=== PATIENT | male | born 1950 | race Caucasian/White ===

== ENCOUNTER 2021-09-04 15:51 | Inpatient (IN) ==
[2021-09-04] MEDS ORDERED: SODIUM CHLORIDE 0.9% 1,000 ML IV STA (16:55)
[2021-09-04 17:12] LABS: Hematocrit 39.5 VOL% (42.0-52.0); Hemoglobin 12.1 GM/DL (14.0-18.0); Immature Granulocytes % 0.7 %; Immature Granulocytes Absolute 0.04 #; Lymphocytes # 0.2 10*3/uL (1.4-4.0); Lymphocytes % 3.3 % (21.2-54.2); Mean Corpuscular HGB Conc 30.6 GM/DL (32-36); Mean Corpuscular Volume 86.8 FL (87-102); Mean Platelet Volume 9.8 FL (9.6-12.0); Monocytes % 3.8 % (1.7-12.7); Neutrophils % 92.2 % (38.7-73.9); Platelet Count 238 T/CUMM (130-400); Red Blood Count 4.55 MC/CUMM (3.8-5.5); Red Cell Distribution Width 14.6 % (9.3-17.3)
[2021-09-04 17:20] LABS: ABG Base Excess 2.8 MMOL/L (-2.5-2.5); ABG HCO3 26.9 MMOL/L (20-26); ABG Oxygen Saturation 98.7 % (95-100); ABG PCO2 34.9 MM HG (35-48); ABG TCO2 22.9 MMOL/L (23-27); Pt O2 Delivery Device Ventilator
[2021-09-04 17:45] LABS: Albumin 2.3 G/DL (3.4-5.0); Bilirubin,Total 0.5 MG/DL (0.20-1.00); Calcium 9.6 MG/DL (8.5-10.1); Osmolality,Calculated 281.5 MOS/KG (273-304); Total Protein 7.1 G/DL (6.4-8.2)
[2021-09-04] MEDS ORDERED: LEVOFLOXACIN INJ 500 MG/100 ML PREMIX IV ONE (18:14)
[2021-09-04 18:31] LABS: INR 1.6; PT Patient Result 17.2 SECS (10.5-12.0)
[2021-09-04 18:50] LABS: Lymphocytes 3 % (20-55); Platelet Estimate Increased; Segmented Neutrophils 90 % (50-85); Total Cells Counted 100
[2021-09-04 18:51] LABS: Ovalocytes 1+
[2021-09-04] MEDS ORDERED: ONDANSETRON 4 MG/2 ML VIAL IV PRN (19:21)
[2021-09-04] MEDS ORDERED: DEXTROSE 50% 25 GM/50 ML VIAL IV PRN (19:21)
[2021-09-04] MEDS ORDERED: GLUCAGON 1 MG VIAL IM PRN (19:21)
[2021-09-04 21:56] LABS: INR 1.4; PT Patient Result 15.1 SECS (10.5-12.0)
[2021-09-04 22:18] LABS: Total Protein 6.2 G/DL (6.4-8.2)
[2021-09-05] MEDS: ALBUTEROL/IPRATROPIUM 3 ML NEB RESP TX SCH ×4 (01:06→20:17)
[2021-09-05 04:28] LABS: Eosinophils % 0.2 % (0.00-10.9); Hematocrit 34.7 VOL% (42.0-52.0); Hemoglobin 10.7 GM/DL (14.0-18.0); Immature Granulocytes % 0.3 %; Immature Granulocytes Absolute 0.02 #; Lymphocytes # 0.2 10*3/uL (1.4-4.0); Lymphocytes % 3.9 % (21.2-54.2); Mean Corpuscular HGB Conc 30.8 GM/DL (32-36); Mean Corpuscular Volume 87.8 FL (87-102); Mean Platelet Volume 9.7 FL (9.6-12.0); Monocytes % 6.3 % (1.7-12.7); Neutrophils % 89.3 % (38.7-73.9); Platelet Count 186 T/CUMM (130-400); Red Blood Count 3.95 MC/CUMM (3.8-5.5); Red Cell Distribution Width 14.4 % (9.3-17.3); White Blood Count 6.1 T/CUMM (4-12)
[2021-09-05 04:56] LABS: Hypochromasia 1+; Lymphocytes 5 % (20-55); Microcytosis 1+; Platelet Estimate Adequate; Segmented Neutrophils 90 % (50-85); Total Cells Counted 100
[2021-09-05 04:57] LABS: Ovalocytes Slight
[2021-09-05 04:58] LABS: Albumin 1.8 G/DL (3.4-5.0); Bilirubin,Total 0.7 MG/DL (0.20-1.00); Osmolality,Calculated 281.3 MOS/KG (273-304); Potassium 3.7 MMOL/L (3.5-5.1); Total Protein 5.6 G/DL (6.4-8.2)
[2021-09-05] MEDS ORDERED: PANTOPRAZOLE 40 MG TABLET PO SCH (09:00)
[2021-09-05] MEDS ORDERED: MIDAZOLAM 2 MG/2 ML VIAL IV ONE (09:12)
[2021-09-05] MEDS ORDERED: KETOROLAC 15 MG/1 ML VIAL ONE (10:26)
[2021-09-05] MEDS ORDERED: KETOROLAC 15 MG/1 ML VIAL IV ONE (10:33)
[2021-09-05] MEDS ORDERED: ACETAMINOPHEN 325 MG TABLET PO PRN (10:41)
[2021-09-05] MEDS ORDERED: CYANOCOBALAMIN 1000 MCG/1 ML VIAL IM ONE (10:43)
[2021-09-05] MEDS ORDERED: methylPREDNISolone SOD SUC 125 MG/2 ML VIAL IV SCH (11:00)
[2021-09-05] MEDS: PIPERACILLIN/TAZOBACTAM 3,375 MG in SODIUM CHLORIDE 0.9% 100 ML IV SCH ×2 (11:32→22:17)
[2021-09-05] MEDS: MULTIVITAMIN (CENTRUM) TABLET PO SCH (11:34)
[2021-09-05] MEDS: LACTATED RINGERS 1,000 ML IV SCH ×2 (11:34→19:15)
[2021-09-05] MEDS: RACEPINEPHRINE 0.5 ML NEB RESP TX SCH ×3 (11:55→20:17)
[2021-09-05 15:43] LABS: Total Protein,Body Fluid 3.2 G/DL
[2021-09-05 17:39] LABS: Eosinophils,Pleural Fluid 5 %; Lymphocytes,Pleural Fluid 64 %; Monocytes,Pleural Fluid 10 %; Neutrophils,Pleural Fluid 21 %
[2021-09-05 17:47] LABS: RBC,Pleural Fluid 9332 T/CUMM
[2021-09-05] MEDS: PANTOPRAZOLE 40 MG TABLET PO SCH (20:42)
[2021-09-05] MEDS: TAMSULOSIN 0.4 MG CAPSULE PO SCH (20:42)
[2021-09-05] MEDS: methylPREDNISolone SOD SUC 125 MG/2 ML VIAL IV SCH (20:42)
[2021-09-05] MEDS: LEVOFLOXACIN INJ 750 MG/150 ML PREMIX IV SCH (20:42)
[2021-09-05] MEDS: SIMVASTATIN 10 MG TABLET PO SCH (20:42)
[2021-09-05] MEDS: CALCIUM (CARBONATE)/VITAMIN D 600 MG-400 UNIT TABLET PO SCH (20:42)
[2021-09-05] MEDS ORDERED: MELATONIN 3 MG TABLET PO PRN (20:59)
[2021-09-06] MEDS: ALBUTEROL/IPRATROPIUM 3 ML NEB RESP TX SCH ×4 (00:20→19:37)
[2021-09-06] MEDS: methylPREDNISolone SOD SUC 125 MG/2 ML VIAL IV SCH ×3 (02:30→20:47)
[2021-09-06] MEDS: PIPERACILLIN/TAZOBACTAM 3,375 MG in SODIUM CHLORIDE 0.9% 100 ML IV SCH ×2 (05:05→15:29)
[2021-09-06] MEDS: LACTATED RINGERS 1,000 ML IV SCH (05:05)
[2021-09-06 05:29] LABS: Hematocrit 36.5 VOL% (42.0-52.0); Hemoglobin 11.2 GM/DL (14.0-18.0); Immature Granulocytes % 0.5 %; Immature Granulocytes Absolute 0.02 #; Lymphocytes # 0.1 10*3/uL (1.4-4.0); Lymphocytes % 1.8 % (21.2-54.2); Mean Corpuscular HGB Conc 30.7 GM/DL (32-36); Mean Corpuscular Volume 86.9 FL (87-102); Mean Platelet Volume 9.8 FL (9.6-12.0); Monocytes % 1.1 % (1.7-12.7); Neutrophils % 96.6 % (38.7-73.9); Platelet Count 187 T/CUMM (130-400); Red Cell Distribution Width 14.5 % (9.3-17.3); White Blood Count 4.4 T/CUMM (4-12)
[2021-09-06 05:46] LABS: Calcium 9.3 MG/DL (8.5-10.1); Osmolality,Calculated 283.3 MOS/KG (273-304); Potassium 4.1 MMOL/L (3.5-5.1)
[2021-09-06 06:41] LABS: Hypochromasia 1+; Lymphocytes 5 % (20-55); Platelet Estimate Adequate; Polychromasia Slight; Segmented Neutrophils 94 % (50-85); Total Cells Counted 100
[2021-09-06] MEDS: RACEPINEPHRINE 0.5 ML NEB RESP TX SCH ×4 (07:05→19:37)
[2021-09-06] MEDS: MULTIVITAMIN (CENTRUM) TABLET PO SCH (09:15)
[2021-09-06] MEDS: FUROSEMIDE 40 MG/4 ML VIAL IV SCH ×2 (09:15→15:29)
[2021-09-06] MEDS: ZINC GLUCONATE 50 MG TABLET PO SCH (09:15)
[2021-09-06] MEDS: ASCORBIC ACID 500 MG TABLET PO SCH (09:16)
[2021-09-06] MEDS: PANTOPRAZOLE 40 MG TABLET PO SCH ×2 (09:16→20:48)
[2021-09-06] MEDS: FOLIC ACID 1 MG TABLET PO SCH (09:16)
[2021-09-06] MEDS: CALCIUM (CARBONATE)/VITAMIN D 600 MG-400 UNIT TABLET PO SCH ×2 (09:16→20:48)
[2021-09-06] MEDS: APIXABAN 5 MG TABLET PO SCH (20:48)
[2021-09-06] MEDS: SIMVASTATIN 10 MG TABLET PO SCH (20:48)
[2021-09-06] MEDS: LEVOFLOXACIN INJ 750 MG/150 ML PREMIX IV SCH (20:48)
[2021-09-06] MEDS: TAMSULOSIN 0.4 MG CAPSULE PO SCH (20:48)
[2021-09-07] MEDS: PIPERACILLIN/TAZOBACTAM 3,375 MG in SODIUM CHLORIDE 0.9% 100 ML IV SCH ×3 (00:28→16:21)
[2021-09-07] MEDS: ALBUTEROL/IPRATROPIUM 3 ML NEB RESP TX SCH ×5 (01:11→19:30)
[2021-09-07] MEDS: methylPREDNISolone SOD SUC 125 MG/2 ML VIAL IV SCH ×3 (05:33→20:14)
[2021-09-07] MEDS: RACEPINEPHRINE 0.5 ML NEB RESP TX SCH ×4 (06:56→19:30)
[2021-09-07 07:04] LABS: Hematocrit 39.3 VOL% (42.0-52.0); Hemoglobin 12.4 GM/DL (14.0-18.0); Immature Granulocytes % 0.5 %; Immature Granulocytes Absolute 0.04 #; Lymphocytes # 0.2 10*3/uL (1.4-4.0); Lymphocytes % 1.8 % (21.2-54.2); Mean Corpuscular HGB Conc 31.6 GM/DL (32-36); Mean Corpuscular Volume 85.6 FL (87-102); Monocytes % 2.1 % (1.7-12.7); Neutrophils % 95.6 % (38.7-73.9); Platelet Count 245 T/CUMM (130-400); Red Blood Count 4.59 MC/CUMM (3.8-5.5); Red Cell Distribution Width 14.6 % (9.3-17.3); White Blood Count 8.2 T/CUMM (4-12)
[2021-09-07 07:31] LABS: Calcium 9.5 MG/DL (8.5-10.1); Osmolality,Calculated 288.1 MOS/KG (273-304); Potassium 3.5 MMOL/L (3.5-5.1)
[2021-09-07 08:54] LABS: Segmented Neutrophils 99 % (50-85); Total Cells Counted 100
[2021-09-07 08:56] LABS: Hypochromasia 1+; Ovalocytes Few; Platelet Estimate Normal
[2021-09-07] MEDS: APIXABAN 5 MG TABLET PO SCH ×2 (09:38→20:13)
[2021-09-07] MEDS: MULTIVITAMIN (CENTRUM) TABLET PO SCH (09:38)
[2021-09-07] MEDS: FOLIC ACID 1 MG TABLET PO SCH (09:38)
[2021-09-07] MEDS: ASCORBIC ACID 500 MG TABLET PO SCH (09:39)
[2021-09-07] MEDS: CALCIUM (CARBONATE)/VITAMIN D 600 MG-400 UNIT TABLET PO SCH ×2 (09:39→20:13)
[2021-09-07] MEDS: ZINC GLUCONATE 50 MG TABLET PO SCH (09:39)
[2021-09-07] MEDS: PANTOPRAZOLE 40 MG TABLET PO SCH ×2 (09:39→20:13)
[2021-09-07] MEDS: FUROSEMIDE 40 MG/4 ML VIAL IV SCH ×2 (09:40→15:55)
[2021-09-07] MEDS: TAMSULOSIN 0.4 MG CAPSULE PO SCH (20:12)
[2021-09-07] MEDS: SIMVASTATIN 10 MG TABLET PO SCH (20:13)
[2021-09-07] MEDS: LEVOFLOXACIN INJ 750 MG/150 ML PREMIX IV SCH (20:13)
[2021-09-08] MEDS: ALBUTEROL/IPRATROPIUM 3 ML NEB RESP TX SCH ×4 (00:45→19:05)
[2021-09-08] MEDS: PIPERACILLIN/TAZOBACTAM 3,375 MG in SODIUM CHLORIDE 0.9% 100 ML IV SCH ×3 (01:22→16:12)
[2021-09-08] MEDS: methylPREDNISolone SOD SUC 125 MG/2 ML VIAL IV SCH ×3 (05:26→21:02)
[2021-09-08 05:32] LABS: Hematocrit 40.6 VOL% (42.0-52.0); Hemoglobin 12.6 GM/DL (14.0-18.0); Immature Granulocytes % 0.5 %; Immature Granulocytes Absolute 0.04 #; Lymphocytes # 0.1 10*3/uL (1.4-4.0); Lymphocytes % 1.1 % (21.2-54.2); Mean Corpuscular Volume 86.4 FL (87-102); Mean Platelet Volume 9.9 FL (9.6-12.0); Monocytes % 2.5 % (1.7-12.7); Neutrophils % 95.9 % (38.7-73.9); Platelet Count 257 T/CUMM (130-400); Red Cell Distribution Width 14.7 % (9.3-17.3)
[2021-09-08 05:50] LABS: Calcium 9.5 MG/DL (8.5-10.1); Potassium 3.3 MMOL/L (3.5-5.1)
[2021-09-08 06:05] LABS: Hypochromasia Slight; Lymphocytes 2 % (20-55); Microcytosis Slight; Platelet Estimate Adequate; Segmented Neutrophils 97 % (50-85); Total Cells Counted 100
[2021-09-08] MEDS: RACEPINEPHRINE 0.5 ML NEB RESP TX SCH (07:27)
[2021-09-08] MEDS ORDERED: LACTATED RINGERS 1,000 ML IV ONE (09:01)
[2021-09-08] MEDS: ZINC GLUCONATE 50 MG TABLET PO SCH (09:11)
[2021-09-08] MEDS ORDERED: METOPROLOL TARTRATE 50 MG TABLET PO ONE (09:13)
[2021-09-08] MEDS: FUROSEMIDE 40 MG/4 ML VIAL IV SCH (09:13)
[2021-09-08] MEDS: ASCORBIC ACID 500 MG TABLET PO SCH (09:15)
[2021-09-08] MEDS: PANTOPRAZOLE 40 MG TABLET PO SCH ×2 (09:16→20:38)
[2021-09-08] MEDS: FOLIC ACID 1 MG TABLET PO SCH (09:16)
[2021-09-08] MEDS: APIXABAN 5 MG TABLET PO SCH (09:17)
[2021-09-08] MEDS: MULTIVITAMIN (CENTRUM) TABLET PO SCH (09:17)
[2021-09-08] MEDS: CALCIUM (CARBONATE)/VITAMIN D 600 MG-400 UNIT TABLET PO SCH ×2 (09:17→20:38)
[2021-09-08] MEDS ORDERED: AMIODARONE INJ 150 MG in DEXTROSE 5% 100 ML IV ONE (09:19)
[2021-09-08] MEDS ORDERED: AMIODARONE INJ 450 MG in DEXTROSE 5% 241 ML IV SCH (09:30)
[2021-09-08 10:16] LABS: M. Tuberculosis PCR Result Negative (Negative)
[2021-09-08] MEDS: POTASSIUM CHLORIDE 20 MEQ TABLET PO SCH ×2 (11:30→20:38)
[2021-09-08] MEDS: AMIODARONE INJ 450 MG in DEXTROSE 5% 241 ML IV SCH (18:50)
[2021-09-08] MEDS: LEVOFLOXACIN INJ 750 MG/150 ML PREMIX IV SCH (20:35)
[2021-09-08] MEDS: SIMVASTATIN 10 MG TABLET PO SCH (20:38)
[2021-09-08] MEDS: TAMSULOSIN 0.4 MG CAPSULE PO SCH (20:38)
[2021-09-09] MEDS: PIPERACILLIN/TAZOBACTAM 3,375 MG in SODIUM CHLORIDE 0.9% 100 ML IV SCH ×3 (00:03→15:26)
[2021-09-09] MEDS: ALBUTEROL/IPRATROPIUM 3 ML NEB RESP TX SCH ×3 (00:28→20:22)
[2021-09-09] MEDS: methylPREDNISolone SOD SUC 125 MG/2 ML VIAL IV SCH ×3 (04:15→21:50)
[2021-09-09 06:40] LABS: Hematocrit 39.1 VOL% (42.0-52.0); Hemoglobin 11.8 GM/DL (14.0-18.0); Immature Granulocytes % 0.6 %; Immature Granulocytes Absolute 0.04 #; Lymphocytes # 0.1 10*3/uL (1.4-4.0); Lymphocytes % 1.3 % (21.2-54.2); Mean Corpuscular HGB Conc 30.2 GM/DL (32-36); Mean Corpuscular Volume 87.5 FL (87-102); Monocytes % 2.4 % (1.7-12.7); Neutrophils % 95.7 % (38.7-73.9); Platelet Count 208 T/CUMM (130-400); Red Blood Count 4.47 MC/CUMM (3.8-5.5); White Blood Count 6.8 T/CUMM (4-12)
[2021-09-09 07:03] LABS: Albumin 1.8 G/DL (3.4-5.0); Bilirubin,Total 0.8 MG/DL (0.20-1.00); Calcium 9.4 MG/DL (8.5-10.1); Potassium 5.4 MMOL/L (3.5-5.1); Total Protein 5.6 G/DL (6.4-8.2)
[2021-09-09 07:14] LABS: Hypochromasia 1+; Lymphocytes 3 % (20-55); Microcytosis 1+; Platelet Estimate Adequate; Segmented Neutrophils 94 % (50-85); Total Cells Counted 100
[2021-09-09] MEDS: MULTIVITAMIN (CENTRUM) TABLET PO SCH (08:25)
[2021-09-09] MEDS: ASCORBIC ACID 500 MG TABLET PO SCH (08:25)
[2021-09-09] MEDS: FOLIC ACID 1 MG TABLET PO SCH (08:26)
[2021-09-09] MEDS: CALCIUM (CARBONATE)/VITAMIN D 600 MG-400 UNIT TABLET PO SCH ×2 (08:26→21:50)
[2021-09-09] MEDS: PANTOPRAZOLE 40 MG TABLET PO SCH ×2 (08:26→21:50)
[2021-09-09] MEDS: ZINC GLUCONATE 50 MG TABLET PO SCH (08:26)
[2021-09-09] MEDS: FUROSEMIDE 40 MG/4 ML VIAL IV SCH (08:28)
[2021-09-09 09:22] LABS: Bilirubin,Urine Negative (Negative); Blood, Urine Negative (Negative); Glucose,Urine (UA) Negative (Negative); Ketones,Urine Negative (Negative); Mucus,Urine Few /LPF (Occasional); Nitrite,Urine Negative (Negative); Protein,Urine Negative; RBC,Urine 3 /HPF (0-4); Squamous Epithelial Cell,Urine Occasional /HPF (0-10); Urine Appearance CLEAR (Clear); Urine Color Yellow (Yellow); Urine Urobilinogen < 2.0 EU/DL (0.2-1.0)
[2021-09-09] MEDS: AMIODARONE INJ 450 MG in DEXTROSE 5% 241 ML IV SCH (11:01)
[2021-09-09] MEDS: AMIODARONE 200 MG TABLET PO SCH ×2 (12:01→22:06)
[2021-09-09] MEDS: MENTHOL/ZINC OXIDE OINT 71 GM JAR TOP SCH (15:18)
[2021-09-09] MEDS: TAMSULOSIN 0.4 MG CAPSULE PO SCH (21:51)
[2021-09-09] MEDS: LEVOFLOXACIN INJ 750 MG/150 ML PREMIX IV SCH (21:51)
[2021-09-09] MEDS: APIXABAN 5 MG TABLET PO SCH (22:06)
[2021-09-09] MEDS: SIMVASTATIN 10 MG TABLET PO SCH (22:08)
[2021-09-10] MEDS: ALBUTEROL/IPRATROPIUM 3 ML NEB RESP TX SCH ×5 (00:48→19:20)
[2021-09-10] MEDS: PIPERACILLIN/TAZOBACTAM 3,375 MG in SODIUM CHLORIDE 0.9% 100 ML IV SCH (05:15)
[2021-09-10] MEDS: methylPREDNISolone SOD SUC 125 MG/2 ML VIAL IV SCH ×3 (05:15→21:05)
[2021-09-10 05:50] LABS: Hematocrit 41.3 VOL% (42.0-52.0); Hemoglobin 12.8 GM/DL (14.0-18.0); Immature Granulocytes % 0.6 %; Immature Granulocytes Absolute 0.05 #; Lymphocytes # 0.1 10*3/uL (1.4-4.0); Lymphocytes % 1.1 % (21.2-54.2); Mean Corpuscular Volume 86.9 FL (87-102); Mean Platelet Volume 10.1 FL (9.6-12.0); Monocytes % 2.7 % (1.7-12.7); Neutrophils % 95.6 % (38.7-73.9); Platelet Count 205 T/CUMM (130-400); Red Blood Count 4.75 MC/CUMM (3.8-5.5); Red Cell Distribution Width 14.6 % (9.3-17.3); White Blood Count 8.6 T/CUMM (4-12)
[2021-09-10 06:04] LABS: Albumin 2.1 G/DL (3.4-5.0); Bilirubin,Total 1.4 MG/DL (0.20-1.00); Calcium 9.5 MG/DL (8.5-10.1); Osmolality,Calculated 295.8 MOS/KG (273-304); Potassium 3.7 MMOL/L (3.5-5.1); Total Protein 5.4 G/DL (6.4-8.2)
[2021-09-10 06:22] LABS: Hypochromasia Slight; Microcytosis Slight; Ovalocytes Slight; Platelet Estimate Adequate; Segmented Neutrophils 99 % (50-85); Total Cells Counted 100
[2021-09-10] MEDS: FUROSEMIDE 40 MG/4 ML VIAL IV SCH (09:05)
[2021-09-10] MEDS: MENTHOL/ZINC OXIDE OINT 71 GM JAR TOP SCH (09:05)
[2021-09-10] MEDS: MULTIVITAMIN (CENTRUM) TABLET PO SCH (09:12)
[2021-09-10] MEDS: ZINC GLUCONATE 50 MG TABLET PO SCH (09:12)
[2021-09-10] MEDS: PANTOPRAZOLE 40 MG TABLET PO SCH ×2 (09:12→23:37)
[2021-09-10] MEDS: ASCORBIC ACID 500 MG TABLET PO SCH (09:12)
[2021-09-10] MEDS: FOLIC ACID 1 MG TABLET PO SCH (09:12)
[2021-09-10] MEDS: AMIODARONE 200 MG TABLET PO SCH ×2 (09:12→21:05)
[2021-09-10] MEDS: APIXABAN 5 MG TABLET PO SCH ×2 (09:13→21:06)
[2021-09-10] MEDS: CALCIUM (CARBONATE)/VITAMIN D 600 MG-400 UNIT TABLET PO SCH ×2 (09:22→21:06)
[2021-09-10] MEDS ORDERED: FLUCONAZOLE INJ 100 MG/50 ML PREMIX IV SCH (11:00)
[2021-09-10] MEDS: Cyanocobalamin (Vitamin B-12) [Vitamin B-12] 5,000 mcg Tablet, S SL SCH (13:29)
[2021-09-10] MEDS: CYANOCOBALAMIN 1000 MCG/1 ML VIAL IM SCH (14:03)
[2021-09-10 14:36] LABS: M. Tuberculosis PCR Result Negative (Negative); M. Tuberculosis PCR Source PLEURAL FLUID
[2021-09-10] MEDS: SIMVASTATIN 10 MG TABLET PO SCH (21:06)
[2021-09-10] MEDS: TAMSULOSIN 0.4 MG CAPSULE PO SCH (21:06)
[2021-09-11] MEDS: ALBUTEROL/IPRATROPIUM 3 ML NEB RESP TX SCH ×4 (01:40→19:19)
[2021-09-11 06:04] LABS: Calcium 9.8 MG/DL (8.5-10.1); Osmolality,Calculated 299.7 MOS/KG (273-304); Potassium 3.4 MMOL/L (3.5-5.1)
[2021-09-11 06:13] LABS: Basophils % 0.1 % (0.0-0.8); Hematocrit 44.3 VOL% (42.0-52.0); Hemoglobin 13.4 GM/DL (14.0-18.0); Immature Granulocytes % 0.4 %; Immature Granulocytes Absolute 0.03 #; Lymphocytes # 0.1 10*3/uL (1.4-4.0); Mean Corpuscular HGB Conc 30.2 GM/DL (32-36); Mean Corpuscular Volume 86.9 FL (87-102); Mean Platelet Volume 10.2 FL (9.6-12.0); Monocytes % 1.9 % (1.7-12.7); Neutrophils % 96.6 % (38.7-73.9); Platelet Count 194 T/CUMM (130-400); Red Cell Distribution Width 14.8 % (9.3-17.3); White Blood Count 7.2 T/CUMM (4-12)
[2021-09-11] MEDS: methylPREDNISolone SOD SUC 125 MG/2 ML VIAL IV SCH ×3 (06:17→21:03)
[2021-09-11 06:21] LABS: Platelet Estimate Adequate; Segmented Neutrophils 99 % (50-85); Total Cells Counted 100
[2021-09-11] MEDS ORDERED: POTASSIUM CHLORIDE 20 MEQ TABLET PO ONE (08:07)
[2021-09-11] MEDS: ZINC GLUCONATE 50 MG TABLET PO SCH (08:37)
[2021-09-11] MEDS: MULTIVITAMIN (CENTRUM) TABLET PO SCH (08:38)
[2021-09-11] MEDS: FOLIC ACID 1 MG TABLET PO SCH (08:39)
[2021-09-11] MEDS: AMIODARONE 200 MG TABLET PO SCH (08:39)
[2021-09-11] MEDS: PANTOPRAZOLE 40 MG TABLET PO SCH ×2 (08:39→21:03)
[2021-09-11] MEDS: FUROSEMIDE 40 MG/4 ML VIAL IV SCH (08:39)
[2021-09-11] MEDS: ASCORBIC ACID 500 MG TABLET PO SCH ×2 (08:39→21:02)
[2021-09-11] MEDS: CALCIUM (CARBONATE)/VITAMIN D 600 MG-400 UNIT TABLET PO SCH ×2 (08:39→21:02)
[2021-09-11] MEDS: MENTHOL/ZINC OXIDE OINT 71 GM JAR TOP SCH (08:54)
[2021-09-11] MEDS: APIXABAN 5 MG TABLET PO SCH ×2 (15:06→21:02)
[2021-09-11] MEDS: FLUCONAZOLE INJ 400 MG/200 ML PREMIX IV SCH (16:50)
[2021-09-11] MEDS: TAMSULOSIN 0.4 MG CAPSULE PO SCH (21:02)
[2021-09-11] MEDS: SIMVASTATIN 10 MG TABLET PO SCH (21:02)
[2021-09-12] MEDS: ALBUTEROL/IPRATROPIUM 3 ML NEB RESP TX SCH ×4 (01:14→19:50)
[2021-09-12] MEDS: methylPREDNISolone SOD SUC 125 MG/2 ML VIAL IV SCH ×3 (04:41→21:17)
[2021-09-12 05:34] LABS: Calcium 9.6 MG/DL (8.5-10.1); Osmolality,Calculated 299.8 MOS/KG (273-304)
[2021-09-12 06:35] LABS: Hematocrit 45.6 VOL% (42.0-52.0); Hemoglobin 13.7 GM/DL (14.0-18.0); Immature Granulocytes % 0.5 %; Immature Granulocytes Absolute 0.04 #; Lymphocytes # 0.1 10*3/uL (1.4-4.0); Lymphocytes % 0.8 % (21.2-54.2); Mean Corpuscular Volume 88.4 FL (87-102); Mean Platelet Volume 9.9 FL (9.6-12.0); Monocytes % 1.4 % (1.7-12.7); Neutrophils % 97.3 % (38.7-73.9); Platelet Count 191 T/CUMM (130-400); Red Blood Count 5.16 MC/CUMM (3.8-5.5); Red Cell Distribution Width 14.9 % (9.3-17.3); White Blood Count 8.5 T/CUMM (4-12)
[2021-09-12 06:53] LABS: Anisocytosis 1+; Band Neutrophils 4 % (0-10); Lymphocytes 1 % (20-55); Platelet Estimate Normal; Segmented Neutrophils 94 % (50-85); Target Cells Few; Total Cells Counted 100
[2021-09-12] MEDS: CALCIUM (CARBONATE)/VITAMIN D 600 MG-400 UNIT TABLET PO SCH ×2 (09:20→21:16)
[2021-09-12] MEDS: PANTOPRAZOLE 40 MG TABLET PO SCH ×2 (09:20→21:17)
[2021-09-12] MEDS: ASCORBIC ACID 500 MG TABLET PO SCH ×2 (09:20→21:16)
[2021-09-12] MEDS: APIXABAN 5 MG TABLET PO SCH ×2 (09:20→21:17)
[2021-09-12] MEDS: METOPROLOL SUCCINATE XL 25 MG TABLET PO SCH (09:21)
[2021-09-12] MEDS: ZINC GLUCONATE 50 MG TABLET PO SCH (09:21)
[2021-09-12] MEDS: MULTIVITAMIN (CENTRUM) TABLET PO SCH (09:21)
[2021-09-12] MEDS: FOLIC ACID 1 MG TABLET PO SCH (09:21)
[2021-09-12] MEDS: FUROSEMIDE 40 MG/4 ML VIAL IV SCH (09:28)
[2021-09-12] MEDS: MENTHOL/ZINC OXIDE OINT 71 GM JAR TOP SCH (09:28)
[2021-09-12] MEDS: DILTIAZEM 30 MG TABLET PO SCH ×2 (17:00→21:16)
[2021-09-12] MEDS: SIMVASTATIN 10 MG TABLET PO SCH (21:16)
[2021-09-12] MEDS: TAMSULOSIN 0.4 MG CAPSULE PO SCH (21:17)
[2021-09-13] MEDS: ALBUTEROL/IPRATROPIUM 3 ML NEB RESP TX SCH ×4 (00:20→19:48)
[2021-09-13] MEDS: methylPREDNISolone SOD SUC 125 MG/2 ML VIAL IV SCH ×3 (05:30→20:52)
[2021-09-13] MEDS: CALCIUM (CARBONATE)/VITAMIN D 600 MG-400 UNIT TABLET PO SCH ×2 (09:47→20:52)
[2021-09-13] MEDS: DILTIAZEM 30 MG TABLET PO SCH ×4 (09:47→20:52)
[2021-09-13] MEDS: FOLIC ACID 1 MG TABLET PO SCH (09:47)
[2021-09-13] MEDS: APIXABAN 5 MG TABLET PO SCH ×2 (09:47→20:52)
[2021-09-13] MEDS: ASCORBIC ACID 500 MG TABLET PO SCH ×2 (09:47→20:52)
[2021-09-13] MEDS: ZINC GLUCONATE 50 MG TABLET PO SCH (09:48)
[2021-09-13] MEDS: PANTOPRAZOLE 40 MG TABLET PO SCH ×2 (09:48→20:52)
[2021-09-13] MEDS: MULTIVITAMIN (CENTRUM) TABLET PO SCH (09:48)
[2021-09-13] MEDS: FUROSEMIDE 40 MG/4 ML VIAL IV SCH (09:49)
[2021-09-13] MEDS: METOPROLOL SUCCINATE XL 25 MG TABLET PO SCH (09:49)
[2021-09-13] MEDS: MENTHOL/ZINC OXIDE OINT 71 GM JAR TOP SCH (09:53)
[2021-09-13] MEDS: FLUCONAZOLE INJ 400 MG/200 ML PREMIX IV SCH (09:54)
[2021-09-13] MEDS: ACETYLCYSTEINE 20% 800 MG/4 ML VIAL RESP TX SCH ×2 (20:03→22:14)
[2021-09-13] MEDS: MEROPENEM 500 MG in SODIUM CHLORIDE 0.9% 100 ML IV SCH (20:48)
[2021-09-13] MEDS: TAMSULOSIN 0.4 MG CAPSULE PO SCH (20:52)
[2021-09-13] MEDS: SIMVASTATIN 10 MG TABLET PO SCH (20:52)
[2021-09-13] MEDS: VANCOMYCIN INJ 1,250 MG in SODIUM CHLORIDE 0.9% 250 ML IV SCH (22:13)
[2021-09-14] MEDS: ALBUTEROL/IPRATROPIUM 3 ML NEB RESP TX SCH ×4 (01:29→20:03)
[2021-09-14] MEDS: ACETYLCYSTEINE 20% 800 MG/4 ML VIAL RESP TX SCH ×3 (01:29→14:09)
[2021-09-14] MEDS: MEROPENEM 500 MG in SODIUM CHLORIDE 0.9% 100 ML IV SCH ×3 (01:43→23:16)
[2021-09-14 05:36] LABS: Hematocrit 43.4 VOL% (42.0-52.0); Hemoglobin 13.2 GM/DL (14.0-18.0); Immature Granulocytes % 0.8 %; Immature Granulocytes Absolute 0.09 #; Lymphocytes % 0.3 % (21.2-54.2); Mean Corpuscular HGB Conc 30.4 GM/DL (32-36); Mean Corpuscular Volume 86.8 FL (87-102); Neutrophils % 96.9 % (38.7-73.9); Platelet Count 154 T/CUMM (130-400); Red Cell Distribution Width 14.9 % (9.3-17.3); White Blood Count 10.9 T/CUMM (4-12)
[2021-09-14 05:54] LABS: Calcium 9.5 MG/DL (8.5-10.1); Osmolality,Calculated 297.8 MOS/KG (273-304); Potassium 3.3 MMOL/L (3.5-5.1)
[2021-09-14 05:56] LABS: Lymphocytes 1 % (20-55); Platelet Estimate Adequate; Segmented Neutrophils 98 % (50-85); Total Cells Counted 100
[2021-09-14] MEDS: methylPREDNISolone SOD SUC 125 MG/2 ML VIAL IV SCH ×3 (06:16→21:00)
[2021-09-14] MEDS ORDERED: DEXTROSE 50% 25 GM/50 ML VIAL IV PRN (08:41)
[2021-09-14] MEDS ORDERED: GLUCAGON 1 MG VIAL IM PRN (08:41)
[2021-09-14] MEDS: VANCOMYCIN INJ 1,250 MG in SODIUM CHLORIDE 0.9% 250 ML IV SCH ×2 (09:06→21:02)
[2021-09-14] MEDS: ASCORBIC ACID 500 MG TABLET PO SCH ×2 (09:57→21:00)
[2021-09-14] MEDS: MULTIVITAMIN (CENTRUM) TABLET PO SCH (09:57)
[2021-09-14] MEDS: PANTOPRAZOLE 40 MG TABLET PO SCH ×2 (09:57→21:00)
[2021-09-14] MEDS: ZINC GLUCONATE 50 MG TABLET PO SCH (09:57)
[2021-09-14] MEDS: APIXABAN 5 MG TABLET PO SCH ×2 (09:58→21:00)
[2021-09-14] MEDS: CALCIUM (CARBONATE)/VITAMIN D 600 MG-400 UNIT TABLET PO SCH ×2 (09:58→21:01)
[2021-09-14] MEDS: METOPROLOL SUCCINATE XL 25 MG TABLET PO SCH (09:58)
[2021-09-14] MEDS: DILTIAZEM 30 MG TABLET PO SCH ×3 (09:58→21:01)
[2021-09-14] MEDS: FOLIC ACID 1 MG TABLET PO SCH (09:58)
[2021-09-14] MEDS: FUROSEMIDE 40 MG/4 ML VIAL IV SCH (09:59)
[2021-09-14] MEDS: MENTHOL/ZINC OXIDE OINT 71 GM JAR TOP SCH (09:59)
[2021-09-14] MEDS: FLUCONAZOLE INJ 400 MG/200 ML PREMIX IV SCH (11:10)
[2021-09-14] MEDS: INSULIN REGULAR 100 UNIT/ML SUBCUT SCH ×3 (12:05→21:49)
[2021-09-14] MEDS: TAMSULOSIN 0.4 MG CAPSULE PO SCH (21:00)
[2021-09-14] MEDS: SIMVASTATIN 10 MG TABLET PO SCH (21:01)
[2021-09-15] MEDS: ALBUTEROL/IPRATROPIUM 3 ML NEB RESP TX SCH ×4 (00:44→19:20)
[2021-09-15] MEDS: methylPREDNISolone SOD SUC 125 MG/2 ML VIAL IV SCH ×3 (05:27→18:23)
[2021-09-15] MEDS: MEROPENEM 500 MG in SODIUM CHLORIDE 0.9% 100 ML IV SCH (05:28)
[2021-09-15 07:02] LABS: Basophils % 0.2 % (0.0-0.8); Hematocrit 43.9 VOL% (42.0-52.0); Hemoglobin 13.5 GM/DL (14.0-18.0); Immature Granulocytes % 0.7 %; Immature Granulocytes Absolute 0.08 #; Lymphocytes % 0.3 % (21.2-54.2); Mean Corpuscular HGB Conc 30.8 GM/DL (32-36); Mean Corpuscular Volume 86.4 FL (87-102); Mean Platelet Volume 11.1 FL (9.6-12.0); Monocytes % 1.4 % (1.7-12.7); Neutrophils % 97.4 % (38.7-73.9); Platelet Count 139 T/CUMM (130-400); Red Blood Count 5.08 MC/CUMM (3.8-5.5); Red Cell Distribution Width 15.1 % (9.3-17.3); White Blood Count 11.6 T/CUMM (4-12)
[2021-09-15 07:14] LABS: Platelet Estimate Normal; Segmented Neutrophils 99 % (50-85); Total Cells Counted 100
[2021-09-15] MEDS: ACETYLCYSTEINE 20% 800 MG/4 ML VIAL RESP TX SCH (07:18)
[2021-09-15 07:26] LABS: Calcium 9.7 MG/DL (8.5-10.1); Potassium 3.2 MMOL/L (3.5-5.1)
[2021-09-15] MEDS: METOPROLOL SUCCINATE XL 25 MG TABLET PO SCH (10:28)
[2021-09-15] MEDS: ASCORBIC ACID 500 MG TABLET PO SCH ×2 (10:28→20:30)
[2021-09-15] MEDS: CALCIUM (CARBONATE)/VITAMIN D 600 MG-400 UNIT TABLET PO SCH ×2 (10:28→20:29)
[2021-09-15] MEDS: MULTIVITAMIN (CENTRUM) TABLET PO SCH (10:28)
[2021-09-15] MEDS: FOLIC ACID 1 MG TABLET PO SCH (10:28)
[2021-09-15] MEDS: FLECAINIDE 50 MG TABLET PO SCH ×2 (10:28→20:30)
[2021-09-15] MEDS: PANTOPRAZOLE 40 MG TABLET PO SCH ×2 (10:28→20:29)
[2021-09-15] MEDS: ZINC GLUCONATE 50 MG TABLET PO SCH (10:28)
[2021-09-15] MEDS: APIXABAN 5 MG TABLET PO SCH ×2 (10:29→20:29)
[2021-09-15] MEDS: FLUCONAZOLE INJ 400 MG/200 ML PREMIX IV SCH (10:29)
[2021-09-15] MEDS: INSULIN REGULAR 100 UNIT/ML SUBCUT SCH ×4 (10:30→20:30)
[2021-09-15] MEDS: FUROSEMIDE 40 MG/4 ML VIAL IV SCH (10:30)
[2021-09-15] MEDS: MENTHOL/ZINC OXIDE OINT 71 GM JAR TOP SCH (10:31)
[2021-09-15] MEDS: DEXAMETHASONE 10 MG/1 ML VIAL IV SCH ×2 (10:39→22:56)
[2021-09-15] MEDS ORDERED: POTASSIUM CHLORIDE 20 MEQ TABLET PO ONE ×2 (10:48→13:00)
[2021-09-15] MEDS: VANCOMYCIN INJ 1,250 MG in SODIUM CHLORIDE 0.9% 250 ML IV SCH (13:38)
[2021-09-15] MEDS: TAMSULOSIN 0.4 MG CAPSULE PO SCH (20:29)
[2021-09-15] MEDS: SIMVASTATIN 10 MG TABLET PO SCH (20:30)
[2021-09-16] MEDS: ALBUTEROL/IPRATROPIUM 3 ML NEB RESP TX SCH ×4 (00:47→19:21)
[2021-09-16] MEDS: methylPREDNISolone SOD SUC 125 MG/2 ML VIAL IV SCH ×3 (02:54→17:25)
[2021-09-16 06:22] LABS: Calcium 9.9 MG/DL (8.5-10.1); Potassium 3.5 MMOL/L (3.5-5.1)
[2021-09-16 06:25] LABS: Basophils % 0.2 % (0.0-0.8); Hematocrit 46.8 VOL% (42.0-52.0); Hemoglobin 14.4 GM/DL (14.0-18.0); Immature Granulocytes % 0.7 %; Immature Granulocytes Absolute 0.08 #; Lymphocytes # 0.1 10*3/uL (1.4-4.0); Lymphocytes % 0.5 % (21.2-54.2); Mean Corpuscular HGB Conc 30.8 GM/DL (32-36); Mean Platelet Volume 11.7 FL (9.6-12.0); Monocytes % 1.2 % (1.7-12.7); Neutrophils % 97.4 % (38.7-73.9); Platelet Count 145 T/CUMM (130-400); Red Blood Count 5.38 MC/CUMM (3.8-5.5); Red Cell Distribution Width 15.5 % (9.3-17.3); White Blood Count 11.9 T/CUMM (4-12)
[2021-09-16 06:32] LABS: Osmolality,Calculated 301.7 MOS/KG (273-304)
[2021-09-16 06:36] LABS: Hypochromasia Slight; Lymphocytes 1 % (20-55); Microcytosis Slight; Platelet Estimate Adequate; Segmented Neutrophils 98 % (50-85); Total Cells Counted 100
[2021-09-16] MEDS: FUROSEMIDE 40 MG/4 ML VIAL IV SCH (08:56)
[2021-09-16] MEDS: CALCIUM (CARBONATE)/VITAMIN D 600 MG-400 UNIT TABLET PO SCH ×2 (09:30→20:13)
[2021-09-16] MEDS: MULTIVITAMIN (CENTRUM) TABLET PO SCH (09:31)
[2021-09-16] MEDS: APIXABAN 5 MG TABLET PO SCH ×2 (09:33→20:14)
[2021-09-16] MEDS: FLECAINIDE 50 MG TABLET PO SCH ×2 (09:34→20:13)
[2021-09-16] MEDS: FOLIC ACID 1 MG TABLET PO SCH (09:34)
[2021-09-16] MEDS: ASCORBIC ACID 500 MG TABLET PO SCH ×2 (09:35→20:13)
[2021-09-16] MEDS: ZINC GLUCONATE 50 MG TABLET PO SCH (09:37)
[2021-09-16] MEDS: PANTOPRAZOLE 40 MG TABLET PO SCH ×2 (09:50→20:14)
[2021-09-16] MEDS: METOPROLOL SUCCINATE XL 25 MG TABLET PO SCH (09:50)
[2021-09-16] MEDS: FLUCONAZOLE INJ 400 MG/200 ML PREMIX IV SCH (12:00)
[2021-09-16] MEDS: DEXAMETHASONE 10 MG/1 ML VIAL IV SCH ×2 (12:01→22:10)
[2021-09-16] MEDS: INSULIN REGULAR 100 UNIT/ML SUBCUT SCH ×3 (12:01→20:33)
[2021-09-16] MEDS: MENTHOL/ZINC OXIDE OINT 71 GM JAR TOP SCH (12:02)
[2021-09-16] MEDS: SIMVASTATIN 10 MG TABLET PO SCH (20:13)
[2021-09-16] MEDS: TAMSULOSIN 0.4 MG CAPSULE PO SCH (20:13)
[2021-09-16] MEDS ORDERED: ALUMINUM/MAGNES/SIMETH MAX STR 30 ML UDCUP PO PRN (21:58)
[2021-09-17] MEDS: ALBUTEROL/IPRATROPIUM 3 ML NEB RESP TX SCH ×4 (00:55→19:46)
[2021-09-17] MEDS: methylPREDNISolone SOD SUC 125 MG/2 ML VIAL IV SCH ×3 (02:14→17:55)
[2021-09-17 05:36] LABS: Basophils % 0.1 % (0.0-0.8); Hematocrit 46.5 VOL% (42.0-52.0); Hemoglobin 14.5 GM/DL (14.0-18.0); Immature Granulocytes % 0.5 %; Immature Granulocytes Absolute 0.08 #; Lymphocytes # 0.1 10*3/uL (1.4-4.0); Lymphocytes % 0.3 % (21.2-54.2); Mean Corpuscular HGB Conc 31.2 GM/DL (32-36); Mean Corpuscular Volume 86.8 FL (87-102); Mean Platelet Volume 11.8 FL (9.6-12.0); Monocytes % 1.5 % (1.7-12.7); Neutrophils % 97.6 % (38.7-73.9); Platelet Count 124 T/CUMM (130-400); Red Blood Count 5.36 MC/CUMM (3.8-5.5); Red Cell Distribution Width 15.6 % (9.3-17.3); White Blood Count 14.9 T/CUMM (4-12)
[2021-09-17 06:05] LABS: Band Neutrophils 1 % (0-10); Hypochromasia 1+; Lymphocytes 2 % (20-55); Segmented Neutrophils 95 % (50-85); Total Cells Counted 100
[2021-09-17 06:06] LABS: Microcytosis Slight; Ovalocytes Slight; Platelet Estimate Adequate
[2021-09-17 06:07] LABS: Calcium 9.8 MG/DL (8.5-10.1); Osmolality,Calculated 304.7 MOS/KG (273-304); Potassium 3.3 MMOL/L (3.5-5.1)
[2021-09-17] MEDS ORDERED: SODIUM CHLORIDE 0.9% 1,000 ML IV SCH (09:00)
[2021-09-17] MEDS ORDERED: POTASSIUM CHLORIDE 20 MEQ TABLET PO ONE (09:37)
[2021-09-17] MEDS: MULTIVITAMIN (CENTRUM) TABLET PO SCH (09:58)
[2021-09-17] MEDS: FLECAINIDE 50 MG TABLET PO SCH ×2 (09:58→21:06)
[2021-09-17] MEDS: METOPROLOL SUCCINATE XL 25 MG TABLET PO SCH (09:58)
[2021-09-17] MEDS: CALCIUM (CARBONATE)/VITAMIN D 600 MG-400 UNIT TABLET PO SCH ×2 (09:58→21:06)
[2021-09-17] MEDS: PANTOPRAZOLE 40 MG TABLET PO SCH ×2 (09:58→21:06)
[2021-09-17] MEDS: ZINC GLUCONATE 50 MG TABLET PO SCH (09:58)
[2021-09-17] MEDS: ASCORBIC ACID 500 MG TABLET PO SCH ×2 (09:58→21:06)
[2021-09-17] MEDS: FOLIC ACID 1 MG TABLET PO SCH (09:59)
[2021-09-17] MEDS: INSULIN REGULAR 100 UNIT/ML SUBCUT SCH ×5 (09:59→23:36)
[2021-09-17] MEDS: APIXABAN 5 MG TABLET PO SCH ×2 (09:59→21:06)
[2021-09-17] MEDS: DEXAMETHASONE 10 MG/1 ML VIAL IV SCH ×2 (10:00→21:36)
[2021-09-17] MEDS: CYANOCOBALAMIN 1000 MCG/1 ML VIAL IM SCH (10:00)
[2021-09-17] MEDS: FLUCONAZOLE INJ 400 MG/200 ML PREMIX IV SCH (10:19)
[2021-09-17] MEDS: MENTHOL/ZINC OXIDE OINT 71 GM JAR TOP SCH (10:21)
[2021-09-17] MEDS: Cyanocobalamin (Vitamin B-12) [Vitamin B-12] 5,000 mcg Tablet, S SL SCH (14:34)
[2021-09-17] MEDS: TAMSULOSIN 0.4 MG CAPSULE PO SCH (21:06)
[2021-09-17] MEDS: SIMVASTATIN 10 MG TABLET PO SCH (21:07)
[2021-09-18] MEDS: ALBUTEROL/IPRATROPIUM 3 ML NEB RESP TX SCH ×2 (01:15→07:30)
[2021-09-18] MEDS ORDERED: MORPHINE 2 MG/1 ML SYRINGE ONE (01:23)
[2021-09-18] MEDS ORDERED: MORPHINE 2 MG/1 ML SYRINGE IV PRN (01:24)
[2021-09-18] MEDS ORDERED: LORazepam 2 MG/1 ML VIAL IV PRN (01:24)
[2021-09-18] MEDS ORDERED: MORPHINE 2 MG/1 ML SYRINGE IV ONE (01:26)
[2021-09-18] MEDS: methylPREDNISolone SOD SUC 125 MG/2 ML VIAL IV SCH ×2 (02:49→10:52)
[2021-09-18 06:15] LABS: Basophils % 0.1 % (0.0-0.8); Eosinophils % 0.1 % (0.00-10.9); Hematocrit 45.3 VOL% (42.0-52.0); Hemoglobin 13.9 GM/DL (14.0-18.0); Immature Granulocytes % 0.6 %; Lymphocytes # 0.1 10*3/uL (1.4-4.0); Lymphocytes % 0.4 % (21.2-54.2); Mean Corpuscular HGB Conc 30.7 GM/DL (32-36); Mean Corpuscular Volume 88.5 FL (87-102); Mean Platelet Volume 11.3 FL (9.6-12.0); Monocytes % 1.4 % (1.7-12.7); Neutrophils % 97.4 % (38.7-73.9); Platelet Count 120 T/CUMM (130-400); Red Blood Count 5.12 MC/CUMM (3.8-5.5); Red Cell Distribution Width 15.6 % (9.3-17.3); White Blood Count 16.6 T/CUMM (4-12)
[2021-09-18 06:23] LABS: Lymphocytes 2 % (20-55); Platelet Estimate Normal; Segmented Neutrophils 97 % (50-85); Total Cells Counted 100
[2021-09-18 06:25] LABS: Calcium 9.5 MG/DL (8.5-10.1); Potassium 3.6 MMOL/L (3.5-5.1)
[2021-09-18 06:47] LABS: Osmolality,Calculated 307.4 MOS/KG (273-304)
[2021-09-18] MEDS: MENTHOL/ZINC OXIDE OINT 71 GM JAR TOP SCH (09:50)
[2021-09-18 09:55] VITALS: BP 125/59
[2021-09-18] MEDS: APIXABAN 5 MG TABLET PO SCH (10:50)
[2021-09-18] MEDS: FLUCONAZOLE INJ 400 MG/200 ML PREMIX IV SCH (10:50)
[2021-09-18] MEDS: INSULIN REGULAR 100 UNIT/ML SUBCUT SCH ×2 (10:50→11:56)
[2021-09-18] MEDS: MULTIVITAMIN (CENTRUM) TABLET PO SCH (10:50)
[2021-09-18] MEDS: CALCIUM (CARBONATE)/VITAMIN D 600 MG-400 UNIT TABLET PO SCH (10:50)
[2021-09-18] MEDS: ASCORBIC ACID 500 MG TABLET PO SCH (10:51)
[2021-09-18] MEDS: METOPROLOL SUCCINATE XL 25 MG TABLET PO SCH (10:51)
[2021-09-18] MEDS: FLECAINIDE 50 MG TABLET PO SCH (10:51)
[2021-09-18] MEDS: PANTOPRAZOLE 40 MG TABLET PO SCH (10:51)
[2021-09-18] MEDS: FOLIC ACID 1 MG TABLET PO SCH (10:51)
[2021-09-18] MEDS: ZINC GLUCONATE 50 MG TABLET PO SCH (10:52)
[2021-09-18] MEDS: DEXAMETHASONE 10 MG/1 ML VIAL IV SCH (10:52)
== END 2021-09-18 11:45 | disposition hospice, home (50) | DRG 867 ==
LOC: N.ED 15:51 → N.EDINP 19:21 → SUATTDRO 19:21 → N.2W 20:07 → N.ICU 09-08 10:42 → N.2W 09-09 15:39
PROVIDERS: ADMIT Internal Medicine; ATTEND Internal Medicine